=== PATIENT | male | born 1960 | race Caucasian/White ===

== ENCOUNTER 2024-07-10 12:28 | Outpatient (CLI) | payer BC ==
[2024-07-10 14:46] LABS: #Basophils 0.04 10x3/uL (0.0-0.2); %Basophils 0.5 % (0.0-1.0); %Lymphocytes 27.1 % (21.0-51.0); %Monocytes 8.3 % (0.0-10.0); %Neutrophils 62.6 % (42.0-75.0); Hematocrit 43.4 % (42.0-52.0); Hemoglobin 14.8 g/dL (14.0-18.0); Mean Corpuscular HGB CONC 34.1 g/dL (32.0-36.0); Mean Corpuscular Hemoglobin 31.8 pg (27.0-31.0); Mean Corpuscular Volume 93.1 fL (78.0-98.0); Mean Platelet Volume 9.5 fL (7.4-10.4); Platelet Count 300 10x3/uL (130-400); RBC Distribution Width 13.3 % (11.5-14.5); Red Blood Cell (RBC) Count 4.66 mill/uL (4.70-6.10)
[2024-07-10 14:50] LABS: Bacteria/HPF None Seen HPF (None Seen); Bilirubin Negative (Negative); Blood, Urine Trace (Negative); Clarity Clear (Clear); Glucose, Urine (Dipstick) Normal (Negative); Ketone, Urine Negative (Negative); Leukocyte Negative Leu/uL (Negative); Nitrite Negative (Negative); Protein, Urine (Dipstick) Negative (Neg-Trace); RBC/HPF 0-3 HPF (0-3); Squamous Epithelial None Seen HPF (0-3); Urobilinogen Normal mg/dL (Less than 2); WBC/HPF 0-3 HPF (0-3); pH, Urine 5.5 (5.0-9.0)
[2024-07-10 15:04] LABS: Anion Gap 11 mmol/L (10-20); BUN (Urea Nitrogen) 16 mg/dL (8.4-25.7); Calc. Creatinine Clearance 0 mL/min (70-130); Calcium 9.5 mg/dL (7.8-10.44); Carbon Dioxide 26 mmol/L (23-31); Chloride 102 mmol/L (98-107); Estimated GFR 69; Glucose 130 mg/dL (80-115); Potassium 3.6 mmol/L (3.5-5.1); Sodium 135 mmol/L (136-145)
[2024-07-10 15:08] LABS: PTT 26.9 sec (22.9-36.1)
== END 2024-07-10 12:29 | disposition home or self-care (01) ==
LOC: LABBT 12:28
PROVIDERS: ATTEND Urology
DX: Z01.818 Encounter for other preprocedural examination (principal); R97.20 Elevated prostate specific antigen [PSA]; R35.0 Frequency of micturition
CPT/HCPCS: 71046; 80048; 81001; 85025; 85610; 85730; 87086; 93005; 93010

== ENCOUNTER 2024-07-16 07:12 | Day surgery (SDC) | payer BC ==
[2024-07-10 13:20] VITALS: BMI 27.3
[2024-07-16] MEDS ORDERED: Sodium Chloride 0.9% 100 ML ONE (08:23)
[2024-07-16] MEDS ORDERED: cefTRIAXone (ROCEPHIN) 2 GM VIAL ONE (08:23)
[2024-07-16] MEDS ORDERED: LevoFLOXacin D5W 500 mg (100 mL) BAG ONE (08:23)
[2024-07-16] MEDS ORDERED: Lidocaine 1% MPF 2 ML VIAL ONE (08:23)
[2024-07-16] MEDS ORDERED: fentaNYL 50 mcg/mL 1 mL Vial ONE (08:48)
[2024-07-16] MEDS ORDERED: PROPOFOL 40 ML ONE (08:48)
[2024-07-16] MEDS ORDERED: Lidocaine 2% PF 5 ML VIAL ONE (08:48)
[2024-07-16] MEDS ORDERED: Midazolam HCl 2 mg/2 ml Vial ONE (08:48)
[2024-07-16] MEDS ORDERED: Tamsulosin HCl 0.4 MG CAP ONE (10:08)
== END 2024-07-16 11:35 | disposition home or self-care (01) ==
LOC: SDC 07:12
PROVIDERS: ATTEND Urology
PROC: 0VB03ZX Excision of Prostate, Percutaneous Approach, Diagnostic (ICD-10-PCS; principal; 2024-07-16)
PROC: 0TJB8ZZ Inspection of Bladder, Via Natural or Artificial Opening Endoscopic (ICD-10-PCS; principal; 2024-07-16)
DX: N40.1 Benign prostatic hyperplasia with lower urinary tract symptoms (principal); R97.20 Elevated prostate specific antigen [PSA]; R35.1 Nocturia
CPT/HCPCS: 88344; C1747; G0416; J0696; J1956; J2250; J2704; J3010

== ENCOUNTER 2024-08-15 08:36 | Outpatient (CLI) | payer BC | END 2024-08-15 08:37 | disposition home or self-care (01) | LOC: CT 08:36 | PROVIDERS: ATTEND Urology | DX: C61 Malignant neoplasm of prostate (principal); K80.20 Calculus of gallbladder without cholecystitis without obstruction; N20.0 Calculus of kidney; R91.1 Solitary pulmonary nodule | CPT/HCPCS: 36415; 74178; 78306; 82565; A9503 ==

== ENCOUNTER 2025-04-19 10:09 | Outpatient (CLI) | payer BC | END 2025-04-19 10:10 | disposition home or self-care (01) | LOC: RAD 10:09 | PROVIDERS: ATTEND Urology | DX: N20.0 Calculus of kidney (principal); K80.20 Calculus of gallbladder without cholecystitis without obstruction | CPT/HCPCS: 74018 ==

== ENCOUNTER 2025-05-14 12:07 | Outpatient (CLI) | payer BC | END 2025-05-14 12:08 | disposition home or self-care (01) | LOC: CT 12:07 | PROVIDERS: ATTEND Internal Medicine | DX: R91.8 Other nonspecific abnormal finding of lung field (principal) | CPT/HCPCS: 71250 ==